=== PATIENT | female | born 1990 | race Two or more races ===

== ENCOUNTER 2023-07-14 03:24 | Emergency (ER) | payer SELFPAY ==
[2023-07-14] MEDS ORDERED: Penicillin V Potassium 500 MG Tab PO STA (03:43)
[2023-07-14] MEDS ORDERED: Ibuprofen 800 MG Tab PO ONE (03:53)
== END 2023-07-14 03:57 | disposition home or self-care (01) ==
LOC: MW.ED 03:24
DX: K04.7 Periapical abscess without sinus (principal)
CPT/HCPCS: 99282; A9270; 99283

== ENCOUNTER 2025-04-01 21:11 | Emergency (ER) | payer SELFPAY ==
[2025-04-01] MEDS: Lidocaine 2% Viscous Solution 15 ML UD PO ONE (21:52)
[2025-04-01] MEDS: Amoxicillin/Clavulanate K 875-125 MG Tab PO ONE (21:52)
[2025-04-01] MEDS: Benzocaine 20% Topical Spray UD MUCMEM ONE (21:52)
== END 2025-04-01 22:01 | disposition home or self-care (01) ==
LOC: MW.ED 21:11
DX: K04.7 Periapical abscess without sinus (principal); Z79.899 Other long term (current) drug therapy; Z75.3 Unavailability and inaccessibility of health-care facilities
CPT/HCPCS: 41800; 99283; A9270; J3490

== ENCOUNTER 2025-06-21 09:19 | Emergency (ER) | payer SELFPAY ==
[2025-06-21] MEDS ORDERED: Sodium Chloride 0.9% 10 ML Syringe FLUSH PRN (10:21)
[2025-06-21] MEDS ORDERED: Sodium Chloride 0.9% 2.5 ML Syringe FLUSH PRN (10:21)
[2025-06-21 10:38] LABS: BASOPHILS ABSOLUTE AUTO 0.01 K/uL (0.00-0.20); BASOPHILS PERCENT AUTO 0.2 % (0.0-1.0); EOSINOPHILS ABSOLUTE AUTO 0.04 K/uL (0.00-0.45); EOSINOPHILS PERCENT AUTO 0.7 % (0.0-6.0); IMMATURE GRAN ABSOLUTE AUTO 0.02 K/uL (0.00-0.05); IMMATURE GRAN PERCENT AUTO 0.3 % (0.0-0.4); LYMPHOCYTES ABSOLUTE AUTO 1.62 K/uL (1.00-4.80); LYMPHOCYTES PERCENT AUTO 26.9 % (24.0-44.0); MEAN PLATELET VOLUME 9.7 fL (9.4-12.3); MONOCYTES ABSOLUTE AUTO 0.37 K/uL (0.00-0.80); MONOCYTES PERCENT AUTO 6.1 % (0.0-8.0); NEUTROPHILS ABSOLUTE AUTO 3.96 K/uL (1.80-7.70); NEUTROPHILS PERCENT AUTO 65.8 % (41.0-71.0); NRBC ABSOLUTE 0.00 K/uL (0.00-0.02); NRBC PERCENT 0.0 /100WBC (0.0-0.2); PLATELET COUNT,PLT 199 K/uL (150-400); RED BLOOD CELL COUNT 3.59 M/uL (4.10-5.30); WHITE BLOOD CELL COUNT,WBC 6.02 K/uL (3.9-11.3)
[2025-06-21 11:27] LABS: A/G RATIO 0.7 (0.9-1.6); ALANINE AMINOTRANSFERASE,ALT 23.0 IU/L (14-63); ASPARTATE AMNIOTRANSFERASE,AST 13.0 IU/L (15-37); BILIRUBIN TOTAL 0.4 mg/dL (0.2-1.0); BLOOD UREA NITROGEN,BUN 8.0 mg/dL (7.0-18.0); CARBON DIOXIDE,CO2 24.6 mmol/L (21.0-32.0); CHLORIDE,CL 105.0 mmol/L (98-107); CREATININE 0.5 mg/dL (0.6-1.0); EST CRCL DRUG DOSING (CG) 114.95 mL/min; GLUCOSE RANDOM 76.0 mg/dL (74-106); POTASSIUM,K 3.8 mmol/L (3.5-5.1); PROTEIN TOTAL,TP 6.9 g/dL (6.4-8.2); SODIUM,NA 139.0 mmol/L (136-145)
[2025-06-21 11:29] LABS: ESTIMATED GFR 127.0 mL/min (>60)
[2025-06-21 11:42] LABS: APPEARANCE,URINE CLEAR; GLUCOSE,URINE NEGATIVE (NEGATIVE); OCCULT BLOOD,URINE NEGATIVE (NEGATIVE)
== END 2025-06-21 12:15 | disposition home or self-care (01) ==
LOC: MW.ED 09:19
DX: O99.891 Other specified diseases and conditions complicating pregnancy (principal); M79.604 Pain in right leg; M79.605 Pain in left leg; Z75.3 Unavailability and inaccessibility of health-care facilities; Z79.899 Other long term (current) drug therapy; Z3A.22 22 weeks gestation of pregnancy
CPT/HCPCS: 36415; 80053; 81003; 83735; 85025; 93970; 96360; 99284; A9270; J7030